=== PATIENT | female | born 1945 | race Caucasian/White ===

== ENCOUNTER 2016-06-16 10:31 | Outpatient (CLI) | payer MEDICARE, OTHER ==
[2015-07-04 17:02] VITALS: BP 122/67
== END 2016-06-16 10:32 ==
LOC: LABRHC 10:31
PROVIDERS: ATTEND Family Medicine
DX: R30.0 Dysuria (principal)
CPT/HCPCS: 87088; 87186

== ENCOUNTER 2016-07-20 08:55 | Outpatient (CLI) | payer MEDICARE, OTHER ==
[2015-07-04 17:02] VITALS: BP 122/67
--- NOTE | 2016-07-20 14:08 | Diagnostic Imaging Report ---
JG TRINH [facility] [address] [facility] [address] 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 A plantar heel spur is present. There is no evidence of fracture, dislocation, arthropathy, or focal bone lesion. Impression: Dorsal midfoot soft tissue swelling. Electronically signed on Jul 20, 2016 10:51:32 AM SOW FARM TECHNICIAN by: Hector HORTON
== END 2016-07-20 08:56 ==
LOC: LAB 08:55
PROVIDERS: ATTEND Family Medicine
DX: E11.9 Type 2 diabetes mellitus without complications (principal); M79.671 Pain in right foot
CPT/HCPCS: 36415; 73630; 83036

== ENCOUNTER 2016-10-18 09:36 | Outpatient (CLI) | payer MEDICARE, OTHER ==
[2015-07-04 17:02] VITALS: BP 122/67
[2016-10-18 10:59] LABS: eGFR (African) > 60; eGFR (Non-African) > 60
== END 2016-10-18 09:37 ==
LOC: LAB 09:36
PROVIDERS: ATTEND Family Medicine
DX: E11.9 Type 2 diabetes mellitus without complications (principal)
CPT/HCPCS: 36415; 80053; 80061; 83036

== ENCOUNTER 2017-01-19 09:04 | Outpatient (CLI) | payer MEDICARE, OTHER ==
[2015-07-04 17:02] VITALS: BP 122/67
== END 2017-01-19 09:10 ==
LOC: LAB 09:04
PROVIDERS: ATTEND Family Medicine
DX: E11.9 Type 2 diabetes mellitus without complications (principal)
CPT/HCPCS: 36415; 83036

== ENCOUNTER 2017-03-10 11:13 | Outpatient (CLI) | payer MEDICARE, OTHER ==
[2015-07-04 17:02] VITALS: BP 122/67
== END 2017-03-10 11:14 ==
LOC: OUT 11:13
PROVIDERS: ATTEND Colon & Rectal Surgery
DX: Z90.49 Acquired absence of other specified parts of digestive tract (principal); Z85.038 Personal history of other malignant neoplasm of large intestine
CPT/HCPCS: G0463

== ENCOUNTER 2017-04-14 07:19 | Day surgery (SDC) | payer MEDICARE, OTHER ==
[2015-07-04 17:02] VITALS: BP 122/67
[2017-04-14] MEDS ORDERED: LACTATED RINGERS 1,000 ML IV.SOLN IV ONE (08:00)
[2017-04-14] MEDS ORDERED: LIDOCAINE HCL/PF 2% 100 MG/5 ML VIAL IJ ONE (08:00)
[2017-04-14] MEDS ORDERED: SALINE FLUSH 10 ML DISP.SYRIN IVF ONE (08:00)
[2017-04-14] MEDS ORDERED: PROPOFOL 500 MG/50 ML VIAL IV ONE (08:00)
--- NOTE | 2017-04-15 10:11 | Operative Note ---
SURGEON: Torrey Bronson MD ANESTHESIA: MAC anesthesia. ESTIMATED BLOOD LOSS: None. COMPLICATIONS: None. FINDINGS: Normal colonoscopy to cecum. PREOPERATIVE DIAGNOSIS: History of colon cancer. POSTOPERATIVE DIAGNOSIS: History of colon cancer. PROCEDURE PERFORMED: Colonoscopy to cecum. INDICATIONS FOR PROCEDURE: This is a 72-year-old woman who has a past history of a colectomy for colon cancer. She presents for a surveillance colonoscopy. DESCRIPTION OF PROCEDURE: Patient brought to the endoscopy suite and placed in the left lateral decubitus position. A rectal exam was performed. She had extensive external skin tags and hemorrhoids. The colonoscope was inserted and it passed easily to the cecum. The appendiceal orifice and ileocecal valve were identified. The prep was good. The colonoscope was slowly retracted being careful to inspect all hobson. There were no polyps or other lesions seen. There was an anastomosis in the upper rectum which was patent with no evidence of recurrence. The colonoscope was removed. The patient tolerated the procedure well. DISPOSITION: Recommend repeat colonoscopy in 5 years. cc: Dr. Lian HORTON
== END 2017-04-14 07:20 ==
LOC: OPSURG 07:19
PROVIDERS: ATTEND Colon & Rectal Surgery
DX: Z85.038 Personal history of other malignant neoplasm of large intestine (principal); Z90.49 Acquired absence of other specified parts of digestive tract
CPT/HCPCS: J2001; J2704; J7120; 45378; S1016

== ENCOUNTER 2017-04-21 09:53 | Outpatient (CLI) | payer MEDICARE, OTHER ==
[2015-07-04 17:02] VITALS: BP 122/67
== END 2017-04-21 11:25 ==
LOC: LAB 09:53
PROVIDERS: ATTEND Family Medicine
DX: E11.9 Type 2 diabetes mellitus without complications (principal)
CPT/HCPCS: 36415; 83036

== ENCOUNTER 2017-09-07 09:36 | Outpatient (CLI) | payer MEDICARE, OTHER ==
[2015-07-04 17:02] VITALS: BP 122/67
[2017-09-07 10:26] LABS: eGFR (African) > 60; eGFR (Non-African) > 60
== END 2017-09-07 09:37 ==
LOC: LAB 09:36
PROVIDERS: ATTEND Family Medicine
DX: E11.9 Type 2 diabetes mellitus without complications (principal)
CPT/HCPCS: 36415; 80053; 80061; 82043; 83036

== ENCOUNTER 2017-09-21 08:36 | Outpatient (CLI) | payer MEDICARE, OTHER ==
[2015-07-04 17:02] VITALS: BP 122/67
== END 2017-09-21 08:38 ==
LOC: LAB 08:36
PROVIDERS: ATTEND Family Medicine
DX: E83.52 Hypercalcemia (principal)
CPT/HCPCS: 36415; 82330; 83970

== ENCOUNTER 2018-01-11 09:08 | Outpatient (CLI) | payer MEDICARE, OTHER ==
[2015-07-04 17:02] VITALS: BP 122/67
== END 2018-01-11 09:10 ==
LOC: LAB 09:08
PROVIDERS: ATTEND Family Medicine
DX: E11.9 Type 2 diabetes mellitus without complications (principal)
CPT/HCPCS: 36415; 83036

== ENCOUNTER 2018-03-13 14:12 | Outpatient (CLI) | payer MEDICARE, MEDICAID ==
[2015-07-04 17:02] VITALS: BP 122/67
== END 2018-03-13 14:13 ==
LOC: LABRHC 14:12
PROVIDERS: ATTEND Family Medicine
DX: R30.0 Dysuria (principal)
CPT/HCPCS: 87086

== ENCOUNTER 2018-07-10 13:30 | Emergency (ER) | payer MEDICARE, OTHER ==
[2018-07-10 13:55] VITALS: BP 138/79
--- NOTE | 2018-07-10 15:31 | ED Physician Documentation ---
Shoulder Injury/Pain - HISTORIAN Historian: patient - HPI Stated Complaint: pain s/p fall Chief Complaint: Fall Additional Information: Patient is a 73 year old female that presents to the ER ambulatory with spouse. She states that she fell 2 weeks ago- she was lying in bed and reached for her heating pad and her leg was tangled in the cord and she fell off the bed injuring her left shoulder/scapula and left ribs. She has an appointment with PCP on the but could not wait. She states that she has been using the heating pad to the affected areas. She is here to make sure that she did not break anything. Front/Back of Body, Lg ([place]): 1 - pain 2 - pain 3 - pain Onset: other (2 weeks ago) Where: home Severity: mild Pain: pain intermittent Context: fall Associated Symptoms: weakness, other (decreased ROM of left shoulder) Further Comments: no - ROS CONST: no problems CVS/RESP: other (hurts to cough) GI/: denies: nausea, vomiting MS/SKIN/LYMPH: denies: neck pain NEURO: denies: headache - PAST HX Past History: diabetes Type 2, other (HTN, HLD. left mastectomy, colon resection) Immunizations: UTD Allergies/Adverse Reactions: Allergies Allergy/AdvReac Type Severity Reaction Status Date / Time latex Allergy Verified 07/10/18 13:55 Sulfa (Sulfonamide Allergy Verified 07/10/18 13:55 Antibiotics) Home Medications: Ambulatory Orders Medication Instructions Recorded Aspirin [Delta] 81 mg PO DAILY 07/10/18 - SOCIAL HX Smoking History: non-smoker Alcohol Use: none Drug Use: none - FAMILY HX Family History: none - VITAL SIGNS Vital Signs: Vital Signs Temp Pulse Resp BP Pulse Ox 98.0 F 80 16 138/79 96 07/10/18 14:53 07/10/18 14:53 07/10/18 14:53 07/10/18 14:53 07/10/18 14:53 - REVIEWED ASSESSMENT Nursing Assessment Reviewed: Yes Vitals Reviewed: Yes ED Results Lab/Radiology - Radiology Radiology Impressions: Left Ribs History: FELL 2 WEEKS AGO. LEFT AXILLARY RIB PAIN AND SCAPULAR PAIN. Findings: 5 views of the chest and left ribs demonstrates osteopenia. No fracture or dislocation. Underlying parenchymal without abnormality. Lungs without focal infiltrative process. Tortuous aorta. Aortic arch vascular calcifications. Impression: No rib fracture/abnormality. Chronic interstitial changes. No focal infiltrate/effusion. Examination: Plain film left shoulder History: FELL 2 WEEKS AGO. LEFT AXILLARY RIB PAIN AND SCAPULAR PAIN. Comparison exams: None provided Findings: 3 views of the left shoulder demonstrates osteopenia. Articular degenerative changes. No evidence for fracture or dislocation. No soft tissue abnormality. Axillary surgical clips. Impression: Osteopenia and degenerative changes. No acute appearing cortical abnormality. - Orders Orders: ED Orders Category Date Time Status RIBS UNILATERAL W/ PA CHEST [RAD] Stat Exams 07/10/18 Taken SHOULDER 2 VIEWS OR MORE [RAD] Stat Exams 07/10/18 Taken Shoulder Injury Physical Exam - Physical Exam General Appearance: alert, mild distress (with movement of left shoulder or cough) Shoulder: no acute distress, no dislocation, limited external rotation, limited extension (muscular pain) Upper Extremity: no injury below shoulder Neuro: sensation nml, motor nml, sensory deficit, motor deficit Vascular: no vascular compromise, motor nml, sensation nml Skin: warm/dry, normal color Head/ENT: nml inspection, pharynx nml Respiratory: no ecchymosis, breath sounds nml, heart sounds nml CVS: reg rate & rhythm, heart sounds normal, equal pulses Abdomen: soft, normal bowel sounds Discharge Clincal Impression: Shoulder sprain, Rib pain on left side Referrals: Lian Tellez MD [Primary Care Provider] - 2 Days Additional Instructions: Continue to use heating pad to affected areas May also use BenGay or Icy Hot Try using lidocaine patches Comments: patient not wanting any pain meds or muscle relaxers- states that she will use Icy Hot Condition: Good Disposition: 01 HOME, SELF-CARE Decision to Admit: NO Decision Time: 14:50
--- NOTE | 2018-07-10 16:20 | Diagnostic Imaging Report ---
GALILEA PLUNKETT [facility] [address] [address] Report Submission Date: Jul 10, 2018 2:35:16 PM ANNUAL GIVING DIRECTOR Patient Study Name: BLANCO REIS Date: Jul 10, 2018 2:00:08 PM ANNUAL GIVING DIRECTOR Modality Type: DX Gender: F Description: RIBS UNILATERAL W/ PA CHEST : 49 Institution: [facility] Physician: GALILEA PLUNKETT Examination: Plain film left ribs History: FELL 2 WEEKS AGO. LEFT AXILLARY RIB PAIN AND SCAPULAR PAIN. Findings: 5 views of the chest and left ribs demonstrates osteopenia. No fracture or dislocation. Underlying parenchymal without abnormality. Lungs without focal infiltrative process. Tortuous aorta. Aortic arch vascular calcifications. Impression: No rib fracture/abnormality. Chronic interstitial changes. No focal infiltrate/effusion. Electronically signed on Jul 10, 2018 2:35:16 PM ANNUAL GIVING DIRECTOR by: Horacio HORTON
--- NOTE | 2018-07-10 16:21 | Diagnostic Imaging Report ---
GALILEA PLUNKETT [facility] [address] [facility] [address] Report Submission Date: Jul 10, 2018 2:29:55 PM HOTBED LEVER OPERATOR Patient Study Name: BLANCO REIS Date: Jul 10, 2018 2:00:08 PM HOTBED LEVER OPERATOR Modality Type: DX Gender: F Description: SHOULDER 2 VIEWS OR MORE : 49 Institution: [facility] Physician: GALILEA PLUNKETT Examination: Plain film left shoulder History: FELL 2 WEEKS AGO. LEFT AXILLARY RIB PAIN AND SCAPULAR PAIN. Comparison exams: None provided Findings: 3 views of the left shoulder demonstrates osteopenia. Articular degenerative changes. No evidence for fracture or dislocation. No soft tissue abnormality. Axillary surgical clips. Impression: Osteopenia and degenerative changes. No acute appearing cortical abnormality. Electronically signed on Jul 10, 2018 2:29:55 PM HOTBED LEVER OPERATOR by: Horacio HORTON
== END 2018-07-10 14:53 | disposition home or self-care (01) ==
LOC: ED 13:30
DX: S43.402A Unspecified sprain of left shoulder joint, initial encounter (principal); R07.81 Pleurodynia; W06.XXXA Fall from bed, initial encounter; Y93.89 Activity, other specified; Y92.003 Bedroom of unspecified non-institutional (private) residence as the place of occurrence of the external cause
CPT/HCPCS: 71101; 73030; 99283; 99284

== ENCOUNTER 2018-09-06 09:14 | Outpatient (CLI) | payer MEDICARE, MEDICAID ==
[2018-09-06 09:59] LABS: eGFR (Non-African) > 60
== END 2018-09-06 09:16 ==
LOC: LAB 09:14
PROVIDERS: ATTEND Family Medicine
DX: E11.9 Type 2 diabetes mellitus without complications (principal)
CPT/HCPCS: 36415; 80053; 80061; 82043; 83036

== ENCOUNTER 2019-04-05 09:11 | Outpatient (CLI) | payer MEDICARE, OTHER | END 2019-04-05 09:16 | LOC: LAB 09:11 | PROVIDERS: ATTEND Family Medicine | DX: E11.9 Type 2 diabetes mellitus without complications (principal) | CPT/HCPCS: 36415; 83036 ==